=== PATIENT | female | born 1990 | race Hispanic/Latino ===

== ENCOUNTER 2023-06-26 19:35 | Emergency (ER) | payer MEDICAID, OTHER ==
[~2023-06-26] VITALS: Ht 160 cm; Wt 49.9 kg
[2023-06-26 20:06] LABS: SARS-CoV-2, RNA, NAAT NEGATIVE SARS CoV-2 (NEGATIVE)
[2023-06-26 20:09] LABS: RAPID GROUP A STREP negative (NEGATIVE)
[2023-06-26 20:16] LABS: INFLUENZA TYPE A Negative For Type A (NEGATIVE); INFLUENZA TYPE B Negative For Type B (NEGATIVE)
[2023-06-26 22:49] VITALS: BP 110/68; PULSE 103; RESP 17; O2SAT 98
[2023-06-26] MEDS ORDERED: IBUPROFEN 600 MG TABLET ONE (22:53)
[2023-06-26] MEDS ORDERED: IBUPROFEN 600 MG TABLET PO ONE (23:00)
[2023-06-27] MEDS ORDERED: IBUP-1493 PO (00:08)
[2023-06-27] MEDS ORDERED: PRED20TA3 PO (00:08)
[2023-06-27] MEDS ORDERED: GUAI1TBM19 PO (00:08)
[2023-06-27] MEDS ORDERED: PREDNISONE 20 MG TABLET PO ONE (00:30)
== END 2023-06-27 00:20 | disposition home or self-care (01) ==
LOC: EDH 19:35
DX: B34.9 Viral infection, unspecified (principal); Z20.822 Contact with and (suspected) exposure to COVID-19
CPT/HCPCS: 99283; 87635; 87880; 87804 ×2; 81025; C9803

== ENCOUNTER 2023-12-10 15:38 | Emergency (ER) | payer OTHER ==
[~2023-12-10] VITALS: Ht 160 cm; Wt 51.7 kg
[~2023-12-10 15:38] MED LIST: GUAI1TBM19 PO; IBUP-1493 PO; PRED20TA3 PO
[2023-12-10 15:41] VITALS: BP 110/76; PULSE 83; RESP 16
[2023-12-10] MEDS: ACETAMINOPHEN 500 MG TABLET PO ONE (16:45)
== END 2023-12-10 16:47 | disposition home or self-care (01) ==
LOC: EDH 15:38
DX: S06.0XAA Concussion with loss of consciousness status unknown, initial encounter (principal); Z79.899 Other long term (current) drug therapy; W18.39XA Other fall on same level, initial encounter; Y93.89 Activity, other specified; Y92.89 Other specified places as the place of occurrence of the external cause; Y99.8 Other external cause status
CPT/HCPCS: 99282